=== PATIENT | female | born 1960 | race Caucasian/White ===

== ENCOUNTER 2018-03-30 06:33 | Day surgery (SDC) | payer BC ==
[~2018-03-30 06:33] MED LIST: ACETAMINOPHEN 1,000 MG/100 ML BTL IV ONE
[2018-03-30] MEDS ORDERED: MIDAZOLAM HCL 2MG/2ML VIAL IV ONE (06:34)
[2018-03-30] MEDS ORDERED: BUPIVACAINE 0.25% W/EPI MPF 30ML VIAL IVP ONE (06:34)
[2018-03-30] MEDS ORDERED: SEVOFLURANE 250 ML INH ONE (06:34)
[2018-03-30] MEDS ORDERED: *PACU ONLY* KETAMINE HCL 10 MG/ML (20ML) VIAL IV ONE (06:34)
[2018-03-30] MEDS ORDERED: PROPOFOL 10 MG/ML VIAL IV ONE (06:34)
[2018-03-30] MEDS ORDERED: ONDANSETRON HCL IV 4 MG/2 ML VIAL IVP ONE (06:34)
[2018-03-30] MEDS ORDERED: HYDROCODONE/APAP 5/325MG TABLET PO ONE (06:34)
[2018-03-30] MEDS ORDERED: LIDOCAINE 1% MDV (10MG/ML) 20ML VIAL SQ ONE (06:34)
--- NOTE | 2018-03-31 12:31 | Operative Note ---
DATE OF SURGERY: 03/30/2018 Surgeon: Jayesh Correia DO PREOPERATIVE DIAGNOSIS: Torn medial meniscus of the left knee. POSTOPERATIVE DIAGNOSES: 1. Torn medial meniscus of the left knee. 2. 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 OPERATION: 1. Arthroscopic partial medial meniscectomy of left knee. 2. Arthroscopic chondroplasty of medial femoral condyle left knee. DESCRIPTION OF PROCEDURE: This 57-year-old female was taken to the operating room and placed in the supine position on the operating room table. General anesthetic was administered. The left lower extremity was elevated. It was It was exsanguinated and the tourniquet inflated to 300 mmHg. Arthroscopic knee bird applied. The left knee prepped with Hibiclens and draped in the usual sterile fashion. An inferolateral portal was established for the 4 mm arthroscope and initial evaluation of the joint demonstrated normal appearance of the suprapatellar pouch but the patient had very minimal grade 2 chondromalacia at the center of the median ridge of the patella. It was not grossly unstable and it was not further disturbed. The trochlea appeared normal. The medial and lateral gutters were examined and found to be normal. The medial compartment was entered and a large flap tear of the posterior horn of the medial meniscus was present. This tear has the apex at approximately the 12 to 12:30 position and utilizing the basket forceps and rotating shaver, we resected back to the apex of the tear and then tapered in each direction to a former smooth contoured surface. This flap tear also demonstrated horizontal cleavage components and after resection of the unstable fragments, we re-probed this meniscus and did not see any evidence of instability of the meniscus. The patient demonstrated mild grade 2 chondromalacia of the medial femoral condyle as well, and this was mostly on the lateral half of the femoral condylar surface, weightbearing surface, and superficial flaps of articular cartilage were loose and these were shaved with the rotating shaver. The intracondylar notch was examined and found to be normal. The lateral compartment was entered. No pathology in the lateral compartment was entered with normal appearance of the articular cartilage and meniscus. The joint was then copiously irrigated with lactated Ringer's solution and the joint was suctioned. The instruments were removed. The portal was infiltrated with 0.25% Marcaine with epinephrine. Sterile dressings applied. Tourniquet and knee bird released and the patient taken to the recovery room in satisfactory condition. GROSS PATHOLOGY: This patient demonstrated a complex tear of the posterior horn of the medial meniscus as well as grade 2 chondromalacia of the medial femoral condyle and patella as described above. CC: SIMON MONTALVO MD, FACP [facility]
== END 2018-03-30 09:05 | disposition home or self-care (01) ==
LOC: SUR 06:33
PROVIDERS: ATTEND Orthopaedic Surgery
DX: S83.242A Other tear of medial meniscus, current injury, left knee, initial encounter (principal); M22.42 Chondromalacia patellae, left knee; M94.262 Chondromalacia, left knee
CPT/HCPCS: J2405